=== PATIENT | male | born 1970 | race Caucasian/White ===

== ENCOUNTER 2020-12-18 11:36 | Emergency (ER) | payer BC ==
[~2020-12-18] VITALS: Ht 195.6 cm; Wt 131.5 kg
--- NOTE | 2020-12-18 11:36 | NUR ---
Patient [facility], triaged by RN. Waiting for an available bed.
[2020-12-18 11:40] VITALS: BP 157/111
[2020-12-18] MEDS ORDERED: ZIPRASIDONE MESYLATE 20 MG/ML VIAL IM ONE (11:45)
[2020-12-18] MEDS ORDERED: LORazepam 2 MG/ML VIAL IM ONE (11:45)
[2020-12-18] MEDS ORDERED: WATER STERILE 10 ML MC ONE (11:47)
--- NOTE | 2020-12-18 12:50 | NUR ---
Patient transferred to bed 5. RN evaluating patient at bedside.
--- NOTE | 2020-12-18 13:30 | NUR ---
Dr. Aviles at bedside.
[2020-12-18 13:55] LABS: BASOPHILS % (AUTO) 0.6 % (0.0-2.0); EOSINOPHILS % (AUTO) 0.6 % (0.0-4.0); HEMATOCRIT 38.3 % (36-52); HEMOGLOBIN 12.5 g/dL (12.0-18.0); LYMPHOCYTES # (AUTO) 1.3 K/uL (2.0-11.5); LYMPHOCYTES % (AUTO) 15.7 % (20.5-51.1); MEAN CORPUSCULAR HEMOGLOBIN 31 pg (27-31); MEAN CORPUSCULAR HGB CONC 33 g/dL (33-37); MEAN CORPUSCULAR VOLUME 93.1 fL (80-94); MONOCYTES % (AUTO) 11.9 % (1.7-9.3); NEUTROPHILS # (AUTO) 5.8 K/uL (1.8-7.7); NEUTROPHILS % (AUTO) 71.2 % (42.2-75.2); PLATELET COUNT (AUTO) 195 K/uL (140-450); RED BLOOD CELL COUNT(AUTO) 4.12 MIL/uL (4.20-6.10); RED CELL DISTRIBUTION WIDTH 14.7 % (11.6-13.7); WHITE BLOOD COUNT (AUTO) 8.1 K/uL (4.8-10.8)
[2020-12-18 14:31] LABS: BARBITURATE, URINE NEGATIVE ng/ml (NEG <=200); BENZODIAZEPINE, URINE NEGATIVE ng/mL (NEG <=200); CANNABINOID, URINE POSITIVE ng/mL (NEG <=50); COCAINE, URINE NEGATIVE ng/mL (NEG <=300); OPIATE, URINE NEGATIVE ng/mL (NEG <=2000); PHENCYCLIDINE SCREEN,URINE POSITIVE ng/mL (NEG <=25)
[2020-12-18 14:32] LABS: ALBUMIN 3.7 g/dL (3.4-5.0); ANION GAP 13.4 (8-16); ASPARTATE AMINOTRANSFERASE 132 U/L (15-37); CARBON DIOXIDE 24.9 mmol/L (21-32); CHLORIDE 107 mmol/L (98-107); CREATININE 1.3 mg/dL (0.6-1.3); GFR ARICAN-AMERICAN 78 mL/min (>90); GLUCOSE 100 mg/dL (74-106); POTASSIUM 3.3 mmol/L (3.5-5.1); SODIUM SERUM 142 mmol/L (136-145); TOTAL BILIRUBIN 0.9 mg/dL (0.0-1.0); UREA NITROGEN, BLOOD 18 mg/dL (7-18)
[2020-12-18 14:42] LABS: ACETAMINOPHEN < 0.5 ug/ml (10-30); SALICYLATE < 2.8 mg/dL (2.8-20.0)
[2020-12-18 14:43] LABS: APPEARANCE,URINE HAZY (CLEAR); BILIRUBIN,URINE 1+ (NEGATIVE); BLOOD, URINE TRACE-I (NEGATIVE); COLOR,URINE AMBER (YELLOW); LEUKOCYTE ESTERASE ,URINE NEGATIVE (NEGATIVE); NITRITE, URINE NEGATIVE (NEGATIVE); UGLUCOSE NEGATIVE (NEGATIVE)
--- NOTE | 2020-12-18 17:02 | NUR ---
COVID SWABS TAKEN TO LAB BOTH KAYLA AND NOVEL TAKEN TO LAB TO BE PROCESSED PER MD ORDER.
--- NOTE | 2020-12-18 19:20 | NUR ---
Report received from THEODORE Lopez for continuation of care.
--- NOTE | 2020-12-18 19:43 | NUR ---
Pt resting in bed, locked and in lowest position, HOB elevated, side rail x 2 for pt safety. [address] for pt safety[address] VSS. No acute distress noted.
--- NOTE | 2020-12-18 20:01 | NUR ---
Pt provided w/ sandwich and juices at this time.
--- NOTE | 2020-12-18 21:00 | NUR ---
Pt resting with eyes closed in bed, locked and in lowest position, visible rise and fall of chest. No acute distress noted.
--- NOTE | 2020-12-18 21:30 | NUR ---
Pt is being calm and cooperative , provided pt w/ dinner tray at this time.
--- NOTE | 2020-12-18 22:30 | NUR ---
Pt sleeping supine, visible rise and fall of chest, arousable to verbal stimulation. Bed is locked and in lowest position, side rails x 2 for pt safety. SI precautions in place for pt safety.
--- NOTE | 2020-12-19 00:09 | NUR ---
Pt laying left laterally, visible rise and fall of chest, VSS. No acute distress noted at this time.
--- NOTE | 2020-12-19 01:15 | NUR ---
Pt ambulated to restroom w/ steady gait. [address]
--- NOTE | 2020-12-19 01:25 | NUR ---
Pt ambulating from restroom ran out of ER , [place] [employer] onsite and able to de-escalte the situation reorient patient and walk him back to room.
--- NOTE | 2020-12-19 01:38 | NUR ---
Pt sitting calmly in bed, locked and in lowest position, HOB elevated , side rail x 2 for pt safety. SI Precautions in place. Pt provided sandwich , juice , water and cookie at this time.
--- NOTE | 2020-12-19 02:21 | NUR ---
PER TELEPSYCH REQUEST INITIATED
--- NOTE | 2020-12-19 03:46 | NUR ---
PT RESTING RIGHT LATERALLY, VISIBLE RISE AND FALL OF CHEST, VSS. NO ACUTE DISTRESS NOTED.
--- NOTE | 2020-12-19 05:05 | NUR ---
[facility] Received intake information. Will continue to assess and monitor for bed placement
--- NOTE | 2020-12-19 05:05 | NUR ---
Pt currently speaking w/ Dr. Weems on Telepsych. Per Dr. Weems patient does not meet criteria for 5150 hold at this time.
[2020-12-19 05:09] VITALS: BP 142/63
--- NOTE | 2020-12-19 05:09 | NUR ---
PATIENT ELOPED FROM FACILITY. Patient refused to wait for belongings. No IV in place. VILMA Lara made aware.
--- NOTE | 2020-12-19 05:13 | NUR ---
Per fax received at this time - Dr. Weems documented that in his opinion the patient does not meet criteria for 5150 hold and would not benefit from a psych admission for stabilization.
[2020-12-19] MEDS ORDERED: traZODone 50 MG TAB PO SCH (21:00)
== END 2020-12-19 05:09 | disposition left against medical advice (07) ==
LOC: MED 11:36 → EDBD 11:36 → MED 12-19 05:09
DX: F29 Unspecified psychosis not due to a substance or known physiological condition (principal); F16.90 Hallucinogen use, unspecified, uncomplicated; F12.90 Cannabis use, unspecified, uncomplicated; Z20.828 Contact with and (suspected) exposure to other viral communicable diseases
CPT/HCPCS: 36415; 80053; 80305; 81003; 85025; 87426; 96372; 99285; C1758; G0480; G0482; J2060; J3486; J7030; U0003; 99284